=== PATIENT | female | born 1950 | race Native Hawaiian/Other Pacific Islander ===

== ENCOUNTER 2017-08-01 09:20 | Outpatient (CLI) | payer BC, OTHER | END 2017-08-01 23:35 | disposition home or self-care (01) | LOC: US 09:20 | DX: M25.562 Pain in left knee (principal) ==

== ENCOUNTER 2021-01-02 08:01 | Outpatient (CLI) | payer BC, OTHER ==
[~2021-01-02] VITALS: Ht 172.7 cm; Wt 109.8 kg
== END 2021-01-02 19:18 | disposition home or self-care (01) ==
LOC: DIABINF 08:01
PROVIDERS: ATTEND Internal Medicine Endocrinology, Diabetes & Metabolism
DX: E11.65 Type 2 diabetes mellitus with hyperglycemia (principal); H35.30 Unspecified macular degeneration; E78.2 Mixed hyperlipidemia; I10 Essential (primary) hypertension; K21.9 Gastro-esophageal reflux disease without esophagitis; E66.8 Other obesity; Z68.36 Body mass index [BMI] 36.0-36.9, adult; N18.30 Chronic kidney disease, stage 3 unspecified
CPT/HCPCS: 82948; 96365; 96366; 96521; J1815; J1817

== ENCOUNTER 2021-01-03 12:45 | Outpatient (CLI) | payer BC, OTHER ==
[~2021-01-03] VITALS: Ht 172.7 cm; Wt 110.7 kg
== END 2021-01-03 22:22 | disposition home or self-care (01) ==
LOC: DIABINF 12:45
PROVIDERS: ATTEND Internal Medicine Endocrinology, Diabetes & Metabolism
DX: E11.65 Type 2 diabetes mellitus with hyperglycemia (principal); H35.30 Unspecified macular degeneration; E78.2 Mixed hyperlipidemia; I10 Essential (primary) hypertension; K21.9 Gastro-esophageal reflux disease without esophagitis; E66.8 Other obesity; Z68.36 Body mass index [BMI] 36.0-36.9, adult; N18.30 Chronic kidney disease, stage 3 unspecified
CPT/HCPCS: 82948; 96365; 96366; 96521; J1815; J1817

== ENCOUNTER 2021-01-09 08:16 | Outpatient (CLI) | payer BC, OTHER ==
[~2021-01-09] VITALS: Ht 172.7 cm; Wt 110.7 kg
== END 2021-01-09 11:30 | disposition home or self-care (01) ==
LOC: DIABINF 08:16
PROVIDERS: ATTEND Internal Medicine Endocrinology, Diabetes & Metabolism
DX: E11.65 Type 2 diabetes mellitus with hyperglycemia (principal); H35.30 Unspecified macular degeneration; E78.2 Mixed hyperlipidemia; I10 Essential (primary) hypertension; K21.9 Gastro-esophageal reflux disease without esophagitis; E66.8 Other obesity; Z68.36 Body mass index [BMI] 36.0-36.9, adult; N18.30 Chronic kidney disease, stage 3 unspecified
CPT/HCPCS: 82948; 96365; 96366; 96521; J1815; J1817

== ENCOUNTER 2021-01-10 12:44 | Outpatient (CLI) | payer BC, OTHER ==
[~2021-01-10] VITALS: Ht 172.7 cm; Wt 110.7 kg
== END 2021-01-10 16:00 | disposition home or self-care (01) ==
LOC: DIABINF 12:44
PROVIDERS: ATTEND Internal Medicine Endocrinology, Diabetes & Metabolism
DX: E11.65 Type 2 diabetes mellitus with hyperglycemia (principal); H35.30 Unspecified macular degeneration; E11.319 Type 2 diabetes mellitus with unspecified diabetic retinopathy without macular edema; E66.9 Obesity, unspecified; Z68.36 Body mass index [BMI] 36.0-36.9, adult; I10 Essential (primary) hypertension; E78.2 Mixed hyperlipidemia; K21.9 Gastro-esophageal reflux disease without esophagitis
CPT/HCPCS: 82948; 96365; 96366; 96521; J1815; J1817

== ENCOUNTER 2021-01-16 07:55 | Outpatient (CLI) | payer BC, OTHER ==
[~2021-01-16] VITALS: Ht 172.7 cm; Wt 110.7 kg
== END 2021-01-16 11:30 | disposition home or self-care (01) ==
LOC: DIABINF 07:55
PROVIDERS: ATTEND Nurse Practitioner
DX: E11.65 Type 2 diabetes mellitus with hyperglycemia (principal); H35.30 Unspecified macular degeneration; I10 Essential (primary) hypertension; E78.2 Mixed hyperlipidemia; K21.9 Gastro-esophageal reflux disease without esophagitis
CPT/HCPCS: 82948; 96365; 96366; 96521; J1815; J1817

== ENCOUNTER 2021-01-17 12:46 | Outpatient (CLI) | payer BC, OTHER ==
[~2021-01-17] VITALS: Ht 172.7 cm; Wt 110.7 kg
== END 2021-01-17 16:00 | disposition home or self-care (01) ==
LOC: DIABINF 12:46
PROVIDERS: ATTEND Nurse Practitioner
DX: E11.65 Type 2 diabetes mellitus with hyperglycemia (principal); H35.30 Unspecified macular degeneration; E78.2 Mixed hyperlipidemia; I10 Essential (primary) hypertension; K21.9 Gastro-esophageal reflux disease without esophagitis; E66.8 Other obesity; Z68.36 Body mass index [BMI] 36.0-36.9, adult; N18.30 Chronic kidney disease, stage 3 unspecified
CPT/HCPCS: 82948; 96365; 96366; 96521; 99214; J1815; J1817

== ENCOUNTER 2021-01-23 08:25 | Outpatient (CLI) | payer BC, OTHER ==
[~2021-01-23] VITALS: Ht 172.7 cm; Wt 110.7 kg
== END 2021-01-23 19:09 | disposition home or self-care (01) ==
LOC: DIABINF 08:25
PROVIDERS: ATTEND Nurse Practitioner
DX: E11.65 Type 2 diabetes mellitus with hyperglycemia (principal); H35.30 Unspecified macular degeneration; E78.2 Mixed hyperlipidemia; I10 Essential (primary) hypertension; K21.9 Gastro-esophageal reflux disease without esophagitis; E66.8 Other obesity; Z68.36 Body mass index [BMI] 36.0-36.9, adult; N18.30 Chronic kidney disease, stage 3 unspecified
CPT/HCPCS: 82948; 96365; 96366; 96521; J1815; J1817

== ENCOUNTER 2021-01-24 12:48 | Outpatient (CLI) | payer BC, OTHER ==
[~2021-01-24] VITALS: Ht 172.7 cm; Wt 110.7 kg
== END 2021-01-24 22:15 | disposition home or self-care (01) ==
LOC: DIABINF 12:48
PROVIDERS: ATTEND Nurse Practitioner
DX: E11.65 Type 2 diabetes mellitus with hyperglycemia (principal); H35.30 Unspecified macular degeneration; E78.2 Mixed hyperlipidemia; I10 Essential (primary) hypertension; K21.9 Gastro-esophageal reflux disease without esophagitis; E66.8 Other obesity; Z68.36 Body mass index [BMI] 36.0-36.9, adult; N18.30 Chronic kidney disease, stage 3 unspecified
CPT/HCPCS: 82948; 96365; 96366; 96521; J1815; J1817

== ENCOUNTER 2021-01-30 08:09 | Outpatient (CLI) | payer BC, OTHER ==
[~2021-01-30] VITALS: Ht 172.7 cm; Wt 112.0 kg
== END 2021-01-30 21:48 | disposition home or self-care (01) ==
LOC: DIABINF 08:09
PROVIDERS: ATTEND Nurse Practitioner
DX: E11.65 Type 2 diabetes mellitus with hyperglycemia (principal); H35.30 Unspecified macular degeneration; E78.2 Mixed hyperlipidemia; I10 Essential (primary) hypertension; K21.9 Gastro-esophageal reflux disease without esophagitis; E66.8 Other obesity; Z68.36 Body mass index [BMI] 36.0-36.9, adult; N18.30 Chronic kidney disease, stage 3 unspecified
CPT/HCPCS: 82948; 96365; 96366; 96521; J1815; J1817

== ENCOUNTER 2021-02-15 08:55 | Outpatient (CLI) | payer BC, OTHER | END 2021-02-15 22:03 | disposition home or self-care (01) | LOC: RAD 08:55 | PROVIDERS: ATTEND Nurse Practitioner Family | DX: U07.1 COVID-19 (principal) ==

== ENCOUNTER 2021-02-27 10:41 | Outpatient (CLI) | payer BC, OTHER | END 2021-02-27 19:24 | disposition home or self-care (01) | LOC: RAD 10:41 | PROVIDERS: ATTEND Nurse Practitioner Family | DX: U07.1 COVID-19 (principal) ==

== ENCOUNTER 2021-03-09 13:15 | Outpatient (CLI) | payer BC, OTHER ==
[~2021-03-09] VITALS: Ht 172.7 cm; Wt 110.7 kg
== END 2021-03-09 19:08 | disposition home or self-care (01) ==
LOC: DIABINF 13:15
PROVIDERS: ATTEND Nurse Practitioner
DX: E11.65 Type 2 diabetes mellitus with hyperglycemia (principal); H35.30 Unspecified macular degeneration; I10 Essential (primary) hypertension; E78.2 Mixed hyperlipidemia; K21.9 Gastro-esophageal reflux disease without esophagitis
CPT/HCPCS: 82948; 96365; 96366; 96521; J1815; J1817

== ENCOUNTER 2021-03-16 13:15 | Outpatient (CLI) | payer BC, OTHER ==
[~2021-03-16] VITALS: Ht 172.7 cm; Wt 110.7 kg
== END 2021-03-16 22:03 | disposition home or self-care (01) ==
LOC: DIABINF 13:15
PROVIDERS: ATTEND Nurse Practitioner
DX: E11.65 Type 2 diabetes mellitus with hyperglycemia (principal); H35.30 Unspecified macular degeneration; I10 Essential (primary) hypertension; E78.2 Mixed hyperlipidemia; K21.9 Gastro-esophageal reflux disease without esophagitis
CPT/HCPCS: 82948; 96365; 96366; 96521; J1815; J1817

== ENCOUNTER 2021-03-23 13:21 | Outpatient (CLI) | payer BC, OTHER ==
[~2021-03-23] VITALS: Ht 172.7 cm; Wt 110.7 kg
== END 2021-03-23 20:16 | disposition home or self-care (01) ==
LOC: DIABINF 13:21
PROVIDERS: ATTEND Nurse Practitioner
DX: E11.65 Type 2 diabetes mellitus with hyperglycemia (principal); H35.30 Unspecified macular degeneration; I10 Essential (primary) hypertension; E78.2 Mixed hyperlipidemia; K21.9 Gastro-esophageal reflux disease without esophagitis; Z86.16 Personal history of COVID-19; Z87.01 Personal history of pneumonia (recurrent)
CPT/HCPCS: 82948; 96365; 96366; 96521; J1815; J1817

== ENCOUNTER 2022-03-27 09:15 | Outpatient (CLI) | payer OTHER ==
[2022-03-27 10:09] LABS: POTASSIUM 4.6 mmol/L (3.6-5.2)
== END 2022-03-27 19:07 | disposition home or self-care (01) ==
LOC: LABW 09:15
PROVIDERS: ATTEND Student in an Organized Health Care Education/Training Program
DX: N17.9 Acute kidney failure, unspecified (principal); R80.8 Other proteinuria; D63.1 Anemia in chronic kidney disease; N25.81 Secondary hyperparathyroidism of renal origin; N18.32 Chronic kidney disease, stage 3b; E83.52 Hypercalcemia; E83.39 Other disorders of phosphorus metabolism; E79.0 Hyperuricemia without signs of inflammatory arthritis and tophaceous disease; E11.9 Type 2 diabetes mellitus without complications; I12.9 Hypertensive chronic kidney disease with stage 1 through stage 4 chronic kidney disease, or unspecified chronic kidney disease
CPT/HCPCS: 36415; 80053; 81002; 82306; 82570; 83735; 83970; 84100; 84156; 84550; 85018

== ENCOUNTER 2022-07-01 09:17 | Outpatient (CLI) | payer OTHER ==
[2022-07-01 09:40] LABS: PLATELET COUNT 171 K/uL (152-353)
[2022-07-01 09:49] LABS: POTASSIUM 4.5 mmol/L (3.6-5.2)
== END 2022-07-01 20:21 | disposition home or self-care (01) ==
LOC: LABW 09:17
PROVIDERS: ATTEND Student in an Organized Health Care Education/Training Program
DX: N17.9 Acute kidney failure, unspecified (principal); R80.8 Other proteinuria; D63.1 Anemia in chronic kidney disease; N25.81 Secondary hyperparathyroidism of renal origin; N18.32 Chronic kidney disease, stage 3b; E55.9 Vitamin D deficiency, unspecified; E79.0 Hyperuricemia without signs of inflammatory arthritis and tophaceous disease; R82.81 Pyuria; I12.9 Hypertensive chronic kidney disease with stage 1 through stage 4 chronic kidney disease, or unspecified chronic kidney disease
CPT/HCPCS: 36415; 80053; 81002; 82570; 84156; 85027

== ENCOUNTER 2022-07-30 14:02 | Outpatient (CLI) | payer OTHER | END 2022-07-30 20:38 | disposition home or self-care (01) | LOC: RAD 14:02 | PROVIDERS: ATTEND Nurse Practitioner Family | DX: Z09 Encounter for follow-up examination after completed treatment for conditions other than malignant neoplasm (principal); Z86.16 Personal history of COVID-19 ==